=== PATIENT | female | born 1995 | race Caucasian/White ===

== ENCOUNTER 2018-07-22 02:55 | Inpatient (IN) ==
[2018-07-22 03:58] LABS: Cocaine Ur Negative (NEGATIVE); Urine Barbiturate Negative (NEGATIVE); Urine Benzodiazepines Negative (NEGATIVE); Urine Opiates Negative (NEGATIVE); Urine PCP Negative (NEGATIVE); Urine THC Negative (NEGATIVE)
[2018-07-22] MEDS ORDERED: ceFAZolin SODIUM/DEXTROSE,ISO 2 GM/50 ML BAG IV ONE (04:17)
[2018-07-22] MEDS ORDERED: RINGER'S SOLUTION,LACTATED 1,000 ML IV PRN (04:17)
[2018-07-22] MEDS ORDERED: OXYTOCIN 20 UNITS in RINGER'S SOLUTION,LACTATED 1,000 ML IV ONE ×2 (04:17→05:55)
--- NOTE | 2018-07-22 04:17 | HP ---
Chief Complaint - Chief Complaint Date of Service: 07/22/18 Time of Service: 04:08 Chief Complaint: Contractions History of Present Illness: 23 yo patient of [facility] at 33 1/7 wks presents to L&D complaining of contractions of severe intensity for the past 2 hours. This complicated by ruptured ophamocele involving liver with bilateral pleural effusions c/w hydrops, and IUGR. Mother a carrier of MEGAN, Magdaleno LINDER, biotinidase deficiency. Pt received steroids last week at [facility] Medical History (Last Reviewed 07/22/18 @ 04:37 by Rafael Antunez DO) Anemia Onset Date: 11/15/16 with Chlamydia Onset Date: 06/28/16 with Gonorrhea Onset Date: Unknown Spontaneous Onset Date: ~03/2016 SAB vs Ectopic. She was given methotrexate Surgical History: Surgical History (Last Reviewed 07/22/18 @ 04:38 by Rafael Antunez DO) No history of previous surgery Family History: Family History (Last Reviewed 07/22/18 @ 04:38 by Rafael Antunez DO) Father Hemochromatosis Kidney stones Sleep apnea Hypertension Mother Alive and well Son Congenital adrenal hyperplasia Social History: Preferred Language Belarusian Smoking Status Former smoker Abuse History No History of abuse Psych History No pertinent hx (Last Updated 04/09/18 @ 14:14 by Rafael Antunez DO) No Social History Section defined Review Of Systems (GEN) - Review of Systems Generalized/Overall Review: Present: No Symptoms Reported EENTM: Present: No Symptoms Reported Respiratory: Present: No Symptoms Reported Cardiac: Present: No Symptoms Reported Abdominal: Present: Other - contractions Genitourinary: Present: Other - vaginal pressure Musculoskeletal: Present: No Symptoms Reported Neurological: Present: No Symptoms Reported Skin: Present: No Symptoms Reported Endocrine: Present: No Symptoms Reported Allergies/Adverse Reactions: Allergies Allergy/AdvReac Type Severity Reaction Status Date / Time No Known Allergies Allergy Verified 07/22/18 03:01 Home Medications: HOME MEDICATIONS vitamin,calcium,yqnmhsxq-gmxm-bdlwn acid tablet 1 tab PO DAILY 03/07/18 [Last Taken Unknown] Exam - Exam Constitutional: Present: Alert, Oriented x3, Cooperative, Moderate distress ENT Exam: Present: hearing grossly normal Breasts: Present: Exam deferred Respiratory: Present: lungs clear, no respiratory distress Cardiovascular/Chest: Present: normal peripheral pulses, no edema, tachycardia Abdomen: Present: soft, no rebound tenderness, other - gravid uterus with moderate+ contractions /Rectal: Present: Other - cervix 1/th/-2 to 5/90/-1 in less than 1 hr. Extremity: Present: no pedal edema, no calf tenderness Skin Exam: Present: warm/dry, no cyanosis Lymphatic: Present: no adenopathy Neurologic: Present: alert, oriented x 3, other - anxious and obviously in pain Appearance: Present: appropriate appearance Eye contact: Present: cooperative, good eye contact Thoughts: Present: normal thought pattern Diagnostic Studies: Laboratory Results Urine Opiates Screen Negative (NEGATIVE) 07/22/18 03:40 Barbiturate Screen Negative (NEGATIVE) 07/22/18 03:40 Ur Phencyclidine Scrn Negative (NEGATIVE) 07/22/18 03:40 Urine Amphetamine Negative (NEGATIVE) 07/22/18 03:40 U Benzodiazepines Scrn Negative (NEGATIVE) 07/22/18 03:40 Urine Cocaine Screen Negative (NEGATIVE) 07/22/18 03:40 Urine Marijuana (THC) Negative (NEGATIVE) 07/22/18 03:40 Assessment/Plan - Assessment/Plan (1) labor in third trimester Assessment: Due to rapid progression of labor and advanced cervical dilation we are unable to transport patient to [facility]. [facility]'s NICU team notified and will come here for delivery. Plan on c/s due to larger ruptured ophalmocele per [facility] highway safety engineer team's recommendation. Problem: Acute Qualifiers: labor delivery status: with delivery in third trimester Fetus number: single or unspecified fetus Qualified Code(s): O60.14X0 - labor third trimester with delivery third trimester, not applicable or unspecified (2) complicated by omphalocele Problem: Acute Qualifiers: Fetus number: single or unspecified fetus Qualified Code(s): O35.8XX0 - Maternal care for other (suspected) abnormality and damage, not applicable or unspecified (3) IUGR (intrauterine growth retardation) affecting mother Problem: Acute Qualifiers: Fetus number: single or unspecified fetus Trimester: third trimester Qualified Code(s): O36.5930 - Maternal care for other known or suspected poor growth, third trimester, not applicable or unspecified (4) Sterilization Problem: Acute (5) Anemia affecting in third trimester Problem: Acute
[2018-07-22 04:24] LABS: Hematocrit 27.3 % (37.0-47.0); Hemoglobin 9.2 gm/dL (12.5-16.0); Mean Cell Volume 91.9 fl (78-100); Mean Corpuscular Hgb Conc 33.7 g/dl (32-36); Mean Platelet Volume 9.2 fl (8-12.5); Neutrophil # 10.9 K/mm3 (1.3-6.0); Neutrophil % 76.5 % (42-75.0); Platelet Count 230 K/mm3 (150-450); Red Blood Count 2.97 M/mm3 (4.2-5.4); Red Cell Distribution Width 12.9 % (11.5-14.0); White Blood Count 14.3 K/mm3 (4.0-10.5)
--- NOTE | 2018-07-22 04:37 | ANES ---
Anesthesia Pre Procedure Eval HOME MEDICATIONS vitamin,calcium,yactgwef-yzwv-amhwt acid tablet 1 tab PO DAILY 03/07/18 [Last Taken Unknown] Allergies/Adverse Reactions: Allergies Allergy/AdvReac Type Severity Reaction Status Date / Time No Known Allergies Allergy Verified 07/22/18 03:01 - Planned Procedure Planned Procedure: C/S Medication List Reviewed:: Yes Allergies Verified: Yes Medical History (Last Updated 03/07/18 @ 09:19 by Yuki De La Cruz) Anemia Onset Date: 11/15/16 with Chlamydia Onset Date: 06/28/16 with Gonorrhea Onset Date: Unknown Spontaneous Onset Date: ~03/2016 SAB vs Ectopic. She was given methotrexate Surgical History (Last Updated 03/07/18 @ 09:19 by Yuki De La Cruz) No history of previous surgery Family History (Last Updated 03/30/18 @ 09:11 by Domitila Brambila) Father Hemochromatosis Kidney stones Sleep apnea Hypertension Mother Alive and well Son Congenital adrenal hyperplasia - Family Anesthesia History Family History:: no untoward family reactions to anesthesia, no familial bleeding tendencies, no family history of clotting disorders, no family history of premature - Airway/Neck/Teeth Within Normal Limits:: Yes Teeth Condition: Intact Mallampatti Score: 2 Thyromental (T-M) distance: > 6 cm Mandibulo Hyoid distance: > 3 cm - Respiratory Respiratory: lungs clear Smoking Status: Smoker, status unknown Discussed smoking cessation including day of surgery: No Sleep Apnea currently treated: No Sleep Apnea by current assessment: No Discussed Risks/Treatment of KYLE: No - Cardiovascular Tolerates Activity: Good Heart Sounds: S1 & S2, Regular - Anesthesia Assessment and Plan ASA Class: PS, II, E Anesthesia Type Plan: Spinal
[2018-07-22] MEDS ORDERED: ONDANSETRON HCL/PF 2 MG/ML VIAL IV PRN ×2 (05:06→06:53)
[2018-07-22] MEDS ORDERED: NALOXONE HCL 1 MG/1 ML SYRG IV PRN (05:06)
[2018-07-22] MEDS ORDERED: BUPIVACAINE HCL/0.9 % NACL/PF 250 ML EP PRN (05:06)
[2018-07-22] MEDS ORDERED: BUPIVACAINE HCL/PF 30 ML VIAL ONE (05:08)
[2018-07-22] MEDS ORDERED: BUPIVACAINE HCL/0.9 % NACL/PF 250 ML CARTRIDGE ONE (05:08)
[2018-07-22] MEDS ORDERED: BUPIVACAINE HCL/PF 30 ML VIAL EP SCH (05:15)
[2018-07-22] MEDS ORDERED: diphenhydrAMINE HCL 25 MG CAPSULE PO PRN (06:53)
[2018-07-22] MEDS ORDERED: SIMETHICONE 80 MG TAB.CHEW PO PRN (06:53)
[2018-07-22] MEDS ORDERED: BISACODYL 10 MG SUPP.RECT RC PRN (06:53)
[2018-07-22] MEDS ORDERED: SENNOSIDES 8.6 MG TABLET PO PRN (06:53)
[2018-07-22] MEDS ORDERED: oxyCODONE HCL/ACETAMINOPHEN 1 TAB TABLET PO PRN (06:53)
--- NOTE | 2018-07-22 07:08 | ANES ---
Post Anesthesia Discharge - Transfer of Care Transfer of Care handoff given to nurse: Yes - Discharge from PACU Discharge from PACU when meets criteria: Yes - Discharge to ASU Discharge to ASU-no complications/pt stable: Yes
--- NOTE | 2018-07-22 07:10 | ANES ---
Anesthesia Procedure Note Procedure Note: ANESTHESIA PROCEDURE NOTE Date of Procedure: 07/23/2018. Time of procedure: 0655. Performed by: Mark Flores CRNA Miner Operator: None. Preprocedure diagnosis: . Post procedure diagnosis: Same. Procedure: Bilateral ultrasound-guided transversus abdominis plane block for postop analgesia. Indications: The patient is a 23-year-old female post section. Findings: See below. Details of the procedure: ChloraPrep was used on the patient's abdomen and the procedure was performed under sterile technique. The right abdominal fascial layer between the internal oblique muscle and the transversus abdominis muscles was identified under ultrasound guidance. A 21-gauge 4 inch block needle was inserted under ultrasound guidance to the target fascial plane. 15 mL's of 0.5% bupivacaine plus epinephrine 1:200,000 was injected after negative aspiration for blood. The needle was removed intact and the procedure was then repeated at the left side. No complications were noted. The images were retained in the hospital medical database . EBL: Minimal. Fluids: N/A. Specimen: N/A. Post procedure condition: The patient tolerated the procedure well. No complications were noted. Thank you for this consultation. Mark Flores CRNA
--- NOTE | 2018-07-22 07:12 | ANES ---
Post Anesthesia Assessment - Vital Signs Vitals: Last Vital Signs Temp 36.9 C 07/22/18 06:50 Pulse 122 H 07/22/18 07:05 Resp 22 H 07/22/18 07:05 BP 119/66 07/22/18 07:05 Pulse Ox 99 07/22/18 07:05 Airway Patency: Normal - Mental Status Level Of Consciousness: Awake - Pain Level Pain Score: 0 - N/V Assessment Nausea/Vomiting Presence: None Dehydration:: No
--- NOTE | 2018-07-22 07:16 | OR ---
Operative Report - Dictated Report Narrative: Pre Operative Diagnosis: Intrauterine at 33 1/7 weeks. labor. Polyhydramnios. Fetus with ruptured omphalocele involving liver, bilateral pleural effusions, probable hydrops, and IUGR. Post Operative Diagnosis: Same. Procedure Preformed: Primary Low Transverse Section Surgeon: Jessie Antunez DO Certified Professional Midwife: OR staff Anesthesia: Spinal, TAP block Estimated Blood Loss: 800 mL Urine Output: 100 mL Fluids Given: 1600 mL of crystalloid Drains: Davidson to gravity Surgical Complications: None Specimens: Placenta to pathology Findings: Polyhydramnios with over 5 L of fluid. Fetus born at 0555 on 07/22/2017 with Apgars 1, 1, 1, in cephalic presentation with large omphalocele. Weight pending. Normal uterus, tubes, ovaries. Cord gases: Arterial: 7.219/55.3/12.0/22.1/-5.9 Venous: 7.316/44.8/15.5/22.4/- 3.7 Indication: 23-year old 2 para 1 patient of [facility] at 33 1 7 weeks with known anomalies presents to [facility] labor and delivery with rapidly progressing labor and advanced cervical dilation making transfer to [facility] unsafe. We attempted to hold off delivery as long as possible to allow [facility] NICU team to arrive but due to inclement weather with an ETA of 2 hours and patient 9cm, we proceeded with section to avoid a vaginal delivery. Technique: The patient was taken to the operating room and placed in dorsal supine position with a left lateral tilt. After adequate spinal anesthesia, davidson catheter insertion,SCDs placed, and 2 g of Ancef given preoperatively, the abdominal cavity was entered via a modified Clay-Jolley incision. Two rolled laps were placed in the pericolic gutters on either side of the uterus. A transverse incision was made in the lower uterine segment and extended laterally and upwardly with digital traction. Copious clear fluid was noted upon amniotomy. The infant was delivered easily and wrapped in a sterile plastic bag. The cord was clamped and cut and was handed off to awaiting medical record assistant. The placenta was allowed to deliver spontaneously. The uterus was cleared of clot and debris. Uterine incision was closed with 0 Vicryl using a running locked stitch. A second imbricating layer was placed. Excellent hemostasis was noted. Cord gases were obtained. Rolled laps were removed from the abdominal cavitiy. The peritoneum was closed with a running 3-0 Monocryl. The same suture was used to approximate the rectus and pyramidalis muscles. The fascia was closed with a running 0 Vicryl. The subcutaneous layer was closed with a running 3-0 Monocryl. The same suture was used to approximate the subdermal layer. The skin was closed with a running 4-0 Monocryl and Dermabond. Sponge, lap, needle, and instrument count were correct x 2. Disposition: The patient was transferred to post anesthesia care unit in good condition
[2018-07-22] MEDS: IBUPROFEN 800 MG TABLET PO PRN ×3 (08:26→23:43)
[2018-07-22] MEDS: oxyCODONE HCL/ACETAMINOPHEN 1 TAB TABLET PO PRN ×5 (08:27→23:43)
[2018-07-22] MEDS: PRENATAL VITS96/IRON FUM/FOLIC 1 TAB TABLET PO SCH (09:04)
[2018-07-22] MEDS: FERROUS SULFATE 325 MG TABLET PO SCH ×2 (09:04→17:45)
[2018-07-22] MEDS: DOCUSATE SODIUM 100 MG CAPSULE PO SCH ×2 (09:04→23:43)
[2018-07-22] MEDS: ENOXAPARIN SODIUM 40 MG/0.4 ML SYRG SC SCH (14:55)
[2018-07-23] MEDS: oxyCODONE HCL/ACETAMINOPHEN 1 TAB TABLET PO PRN ×5 (06:51→20:50)
[2018-07-23] MEDS: IBUPROFEN 800 MG TABLET PO PRN ×3 (06:51→20:50)
[2018-07-23] MEDS: PRENATAL VITS96/IRON FUM/FOLIC 1 TAB TABLET PO SCH (09:09)
[2018-07-23] MEDS: DOCUSATE SODIUM 100 MG CAPSULE PO SCH ×2 (09:09→20:50)
[2018-07-23] MEDS: FERROUS SULFATE 325 MG TABLET PO SCH ×2 (09:09→17:46)
--- NOTE | 2018-07-23 13:09 | PN ---
Subjective - Date and Time Seen Date: 07/23/18 Time: 13:07 - seen this a.m. Objective - Vitals Vitals: Last Vital Signs Temp 36.4 C 07/23/18 11:30 Pulse 94 07/23/18 11:30 Resp 20 07/23/18 11:30 BP 91/54 07/23/18 11:30 Pulse Ox 99 07/23/18 11:30 Patient denies complaints. Tolerating regular diet. Ambulating without difficulty. Pain well controlled. Lochia wnl. Abdomen - soft, appropriately tender Incision - clean, dry, intact Uterus - firm, at umbilicus -1 No calf tenderness Impression: Post op day #1 s/p primary section. due to severe congenital anomalies-patient dealing fairly well for the situation. Plan: Continue routine post-operative/ care. Grief counseling. Cauti Physician Documentation - Urinary Catheter Management Urethral (Dewitt) Date of Insertion: 07/22/18 Time of Insertion: 05:40 Date of Removal: 07/22/18 Time of Removal: 19:05 Assessment/Plan - Problems/Diagnosis (1) labor in third trimester Problem: Acute Qualifiers: labor delivery status: with delivery in third trimester Fetus number: single or unspecified fetus Qualified Code(s): O60.14X0 - labor third trimester with delivery third trimester, not applicable or unspecified (2) complicated by omphalocele Problem: Acute Qualifiers: Fetus number: single or unspecified fetus Qualified Code(s): O35.8XX0 - Maternal care for other (suspected) abnormality and damage, not applicable or unspecified (3) IUGR (intrauterine growth retardation) affecting mother Problem: Acute Qualifiers: Fetus number: single or unspecified fetus Trimester: third trimester Qualified Code(s): O36.5930 - Maternal care for other known or suspected poor growth, third trimester, not applicable or unspecified (4) Sterilization Problem: Acute (5) Anemia affecting in third trimester Problem: Acute
[2018-07-23] MEDS: ENOXAPARIN SODIUM 40 MG/0.4 ML SYRG SC SCH (15:35)
--- NOTE | 2018-07-24 06:15 | PATH ---
PHYSICIAN:Rafael Antunez DO LAB #:[id number] SPECIMEN DATE:07/23/2018 SPECIMEN:Placenta. CLINICAL INFORMATION:The patient is a 23-year-old woman, patient at [facility] who presents for labor at 33 and 1/7th weeks in labor and could not be transferred to [facility] and [facility]. An attempt was made to delay labor until team from [facility] pediatrics could arrive. However inclement weather, delay of 2 hours, the patient was delivered by to prevent vaginal delivery maternal history: IGUR, complicated by ruptured omphalocele involving liver with bilateral pleural effusions consistent with hydrops. Mother is a carrier of CAD, Duchenne muscular dystrophy, Biotene 10 days deficiency. Patient received steroids last week at [facility]. Operative Findings: Intrauterine gross retardation and complicated by omphalocele, labor. Patient delivered by primary section. Apgars 1,1,1 with large omphalocele, could not be revived. no autopsy obtained. GROSS DESCRIPTION:The specimen is received in a formalin-filled container appropriately designated "placenta." Specimen consists of a 1170 gram, 21.1 x 19.2 x 4.0 cm placenta with an eccentrically attached 15 cm x 1.5 cm trivascular umbilical cord. There is a 12.0 x 1.5 cm detached portion of umbilical cord. The membranes are slate euceda and unremarkable. The maternal cotyledons are slightly disrupted but are seen to be all present. Cross sections through the placenta show beefy red parenchyma with no focal lesions. membranes are slightly opacified. Summary of cassettes: 1= Umbilical cord; 2 and 3 = surface; 4 = Maternal surface; 5= membranes. DIAGNOSIS: INTRAUTERINE CONTENTS, PRIMARY SECTION: THIRD TRIMESTER TRI-VASCULAR UMBILICAL CORD 1170 GRAM PLACENTA SHOWING: -EARLY ACUTE CHORIOAMNIONITIS AND FUNISITIS -EXTENSIVE PLACENTAL EDEMA (HYDROPS) WITH PLACENTAL WEIGHT OVER TWICE 90% PERCENTILE FOR 34 WEEKS (491 GMS) COMMENT: No evidence of villitis or infarction. The pathologic findings of acute chorioamnionitis explained the unrelenting labor experienced in this case. Placental edema (hydrops) is associated with hydrops due to ruptured omphalocele. The findings are communicated to the pediatric and obstetrical clinical team by FAX on 07/24/2018.
[2018-07-24] MEDS: oxyCODONE HCL/ACETAMINOPHEN 1 TAB TABLET PO PRN (06:44)
[2018-07-24] MEDS: IBUPROFEN 800 MG TABLET PO PRN (06:44)
[2018-07-24] MEDS: PRENATAL VITS96/IRON FUM/FOLIC 1 TAB TABLET PO SCH (09:26)
[2018-07-24] MEDS: FERROUS SULFATE 325 MG TABLET PO SCH (09:26)
[2018-07-24] MEDS: DOCUSATE SODIUM 100 MG CAPSULE PO SCH (09:26)
--- NOTE | 2018-07-24 13:19 | PN ---
Subjective - Date and Time Seen Date: 07/24/18 Time: 13:18 Objective - Vitals Vitals: Last Vital Signs Temp 37.3 C 07/24/18 06:58 Pulse 98 07/24/18 06:58 Resp 18 07/24/18 06:58 BP 107/59 07/24/18 06:58 Pulse Ox 98 07/24/18 06:58 Patient denies complaints. Ambulating well. Tolerating regular diet. Pain well controlled. Lochia wnl. Abdomen - soft, appropriately tender Incision - clean, dry, intact Uterus - firm, at umbilicus -2 No calf tenderness Impression: Post op day #2 s/p primary section. Severe anemia. delivery with due to congenital abnormalities. Plan: Continue routine post-operative/ care. Follow up in the office in 2 weeks. Grief counseling. Cauti Physician Documentation - Urinary Catheter Management Urethral (Dewitt) Date of Insertion: 07/22/18 Time of Insertion: 05:40 Date of Removal: 07/22/18 Time of Removal: 19:05 Assessment/Plan - Problems/Diagnosis (1) labor in third trimester Problem: Acute Qualifiers: labor delivery status: with delivery in third trimester Fetus number: single or unspecified fetus Qualified Code(s): O60.14X0 - labor third trimester with delivery third trimester, not applicable or unspecified (2) complicated by omphalocele Problem: Acute Qualifiers: Fetus number: single or unspecified fetus Qualified Code(s): O35.8XX0 - Maternal care for other (suspected) abnormality and damage, not applicable or unspecified (3) IUGR (intrauterine growth retardation) affecting mother Problem: Acute Qualifiers: Fetus number: single or unspecified fetus Trimester: third trimester Qualified Code(s): O36.5930 - Maternal care for other known or suspected poor growth, third trimester, not applicable or unspecified (4) Sterilization Problem: Acute (5) Anemia affecting in third trimester Problem: Acute
[2018-07-24 15:11] VITALS: BP 111/70
[2018-07-24] MEDS: ENOXAPARIN SODIUM 40 MG/0.4 ML SYRG SC SCH (15:11)
--- NOTE | 2018-07-30 12:25 | PN ---
Subjective - Date and Time Seen Date: 07/30/18 Time: 12:25 Objective - Vitals Vitals: Last Vital Signs Temp 37.4 C 07/24/18 15:09 Pulse 105 H 07/24/18 15:09 Resp 18 07/24/18 15:09 BP 111/70 07/24/18 15:09 Pulse Ox 100 07/24/18 15:09 Cauti Physician Documentation - Urinary Catheter Management Urethral (Dewitt) Date of Insertion: 07/22/18 Time of Insertion: 05:40 Date of Removal: 07/22/18 Time of Removal: 19:05 Assessment/Plan - Problems/Diagnosis (1) labor in third trimester Problem: Acute Qualifiers: labor delivery status: with delivery in third trimester Fetus number: single or unspecified fetus Qualified Code(s): O60.14X0 - labor third trimester with delivery third trimester, not applicable or unspecified (2) complicated by omphalocele Problem: Acute Qualifiers: Fetus number: single or unspecified fetus Qualified Code(s): O35.8XX0 - Maternal care for other (suspected) abnormality and damage, not applicable or unspecified (3) IUGR (intrauterine growth retardation) affecting mother Problem: Acute Qualifiers: Fetus number: single or unspecified fetus Trimester: third trimester Qualified Code(s): O36.5930 - Maternal care for other known or suspected poor growth, third trimester, not applicable or unspecified (4) Sterilization Problem: Acute (5) Anemia affecting in third trimester Problem: Acute History for MU Definition: * The number of deliveries resulting in a live the patient experienced prior to current hospitalization * The previous delivery of live twins or any live multiple gestation is considered one live event. *If primagravida or nulliparous is documented select zero for the number of previous live births. Live Events: 1
== END 2018-07-24 17:25 | disposition home or self-care (01) | DRG 786 ==
LOC: OBCLINIC 02:55 → OB 04:14 → MS 08:30
PROVIDERS: ADMIT Obstetrics & Gynecology; ATTEND Obstetrics & Gynecology
CPT/HCPCS: 36415; 59025; 80307; 85025; 86850; 86900; 88307; G0479